=== PATIENT | female | born 2000 | race Two or more races ===

== ENCOUNTER 2024-10-02 07:40 | Inpatient (IN) | payer OTHER ==
[~2024-10-02] VITALS: Ht 162.6 cm; Wt 68.5 kg
[2024-10-02 08:20] VITALS: BP 109/71
[2024-10-02] MEDS ORDERED: RINGERS SOLUTION,LACTATED 1,000 ML IV SCH (09:30)
[2024-10-02 09:44] LABS: URINE APPEARANCE Clear; URINE BILIRRUBIN Negative (NEGATIVE); URINE BLOOD Negative; URINE COLOR Yellow; URINE GLUCOSE Negative (NEGATIVE); URINE KETONE Negative (NEGATIVE); URINE LEUKOCYTE Negative; URINE NITRATE Negative; URINE PROTEIN Negative (NEGATIVE); URINE UROBILINOGEN 0.2 E.U./dl
[2024-10-02 09:46] LABS: URINE BACTERIA 59.9 uL (0.0-1933); URINE EPITHELIAL CELLS 3.4 uL (0.0-38.8); URINE WBC 3.1 uL (0.0-23.2)
[2024-10-02] MEDS ORDERED: PRENATA CHEWAB1 EACH PO (09:51)
[2024-10-02] MEDS ORDERED: VITAMIN C100 MG PO (09:52)
[2024-10-02 10:01] LABS: BASO % 0.6 % (0.1-1.2); EOS % 2.2 % (0.7-7.0); HEMATOCRIT 36.8 % (34.1-44.9); HEMOGLOBIN 12.7 g/dL (11.2-15.7); LYMPH # 1.72 (1.18-3.74); MONO # 0.48 (0.24-0.82); MONO % 5.3 % (4.7-12.5); NEUT # 6.46 (1.56-6.13); NEUT % 71.5 % (34.0-71.1); PLATELET COUNT 249 K/uL (163-369); RED CELL DISTRIBUTION WIDTH 13.2 % (11.6-14.4); URINE RBC 0.2 uL (0.0-20.8)
[2024-10-02 10:29] LABS: INR 0.96; PARTIAL THROMBOPLASTIN TIME 26.3 SECONDS (22.0-34.0); PROTHROMBIN TIME 10.5 SECONDS (9.0-11.5)
[2024-10-02 10:45] VITALS: BP 96/58
[2024-10-02] MEDS ORDERED: OXYTOCIN 20 UNITS/500ML RL PIGGYBAG IV ONE (13:20)
[2024-10-02] MEDS ORDERED: OXYTOCIN 20 UNITS/500ML RL PIGGYBAG IV SCH (13:45)
[2024-10-02] MEDS ORDERED: MORPHINE SULFATE 4 MG/ML CARTRIDGE IV STA (15:34)
[2024-10-02] MEDS ORDERED: OXYTOCIN 20 UNITS/1000ML RL PIGGYBAG IV ONE (15:41)
[2024-10-02] MEDS ORDERED: LIDOCAINE HCL 1% 10ML VIAL ONE (15:41)
[2024-10-02] MEDS ORDERED: CHLORHEXIDINE GLUCONATE 120 ML BOTTLE TOP ONE (15:41)
[2024-10-02] MEDS ORDERED: ERYTHROMYCIN BASE OPHT 1GM EACH TUBE OP ONE (15:41)
[2024-10-02] MEDS ORDERED: ACETAMINOPHEN 500 MG GEL..CAP PO PRN (17:30)
[2024-10-02] MEDS ORDERED: OXYTOCIN 1,000 ML IV SCH (17:30)
[2024-10-02] MEDS ORDERED: CHLORHEXIDINE GLUCONATE 120 ML BOTTLE TOP SCH (17:30)
[2024-10-02 20:30] VITALS: BP 118/59
[2024-10-02 21:05] LABS: BASO % 0.3 % (0.1-1.2); EOS # 0.01 (0.04-0.54); EOS % 0.1 % (0.7-7.0); HEMATOCRIT 37.3 % (34.1-44.9); HEMOGLOBIN 12.9 g/dL (11.2-15.7); LYMPH # 1.11 (1.18-3.74); LYMPH % 7.6 % (19.3-53.1); MONO # 0.71 (0.24-0.82); MONO % 4.9 % (4.7-12.5); NEUT % 86.4 % (34.0-71.1); PLATELET COUNT 247 K/uL (163-369); RED BLOOD COUNT 4.16 M/uL (3.93-5.22); RED CELL DISTRIBUTION WIDTH 13.4 % (11.6-14.4)
[2024-10-02 23:20] VITALS: BP 119/71
[2024-10-03 01:32] VITALS: BP 99/62
[2024-10-03 08:00] VITALS: BP 104/68
[2024-10-03] MEDS ORDERED: PNV,CALCIUM 72/IRON/FOLIC ACID 1 TAB TABLET PO SCH (09:00)
[2024-10-03 16:19] VITALS: BP 111/75
[2024-10-04 00:52] VITALS: BP 119/83
[2024-10-04 08:00] VITALS: BP 113/76
== END 2024-10-04 13:13 | disposition home or self-care (01) | DRG 807 ==
LOC: LDR 07:40 → OB/GYN 07:40 → LDR 12:18 → OB/GYN 19:07
PROVIDERS: ADMIT Obstetrics & Gynecology; ATTEND Obstetrics & Gynecology
PROC: 10E0XZZ Delivery of Products of Conception, External Approach (ICD-10-PCS; principal; 2024-10-02)
PROC: 4A1HXCZ Monitoring of Products of Conception, Cardiac Rate, External Approach (ICD-10-PCS; 2024-10-02)
DX: O80 Encounter for full-term uncomplicated delivery (principal); Z37.0 Single live birth; Z3A.39 39 weeks gestation of pregnancy